=== PATIENT | female | born 1955 | race Caucasian/White ===

== ENCOUNTER → 2017-08-29 | Outpatient (CLI) | payer OTHER | LOC: FIMAGING 11:34 | PROVIDERS: ATTEND Family Medicine | DX: Z12.31 Encounter for screening mammogram for malignant neoplasm of breast (principal) | CPT/HCPCS: G0202 ==

== ENCOUNTER → 2018-06-21 | Outpatient (CLI) | payer OTHER | LOC: FIMAGING 15:19 | PROVIDERS: ATTEND Orthopaedic Surgery | DX: M16.12 Unilateral primary osteoarthritis, left hip (principal); S76.312A Strain of muscle, fascia and tendon of the posterior muscle group at thigh level, left thigh, initial encounter; M79.89 Other specified soft tissue disorders ==

== ENCOUNTER 2018-07-02 12:15 | Inpatient (IN) | payer OTHER ==
[2018-07-24] MEDS ORDERED: POVIDONE-IODINE 20 ML in SODIUM CL IRRIG SOLUTION 500 ML IRR ONE (06:00)
[2018-07-24] MEDS ORDERED: TRANEXAMIC ACID 1,000 MG in NS 100 ML IV ONE (06:00)
[2018-07-24] MEDS ORDERED: VANCOMYCIN HCL/NORMAL SALINE 250 ML IV ONE ×2 (06:00→19:00)
[2018-07-24] MEDS ORDERED: ROPIVACAINE 0.2% 80 MG, EPINEPHrine 0.2 MG, KETOROLAC TROMETHAMINE 30 MG in SYRINGE 0 ML IU ONE (06:00)
[2018-07-24] MEDS ORDERED: VANCOMYCIN PHARMACY TO DOSE MISC ONE (06:00)
[2018-07-24] MEDS ORDERED: ACETAMINOPHEN 325 MG TAB PO ONE (06:17)
[2018-07-24] MEDS ORDERED: DEXAMETHASONE 4 MG/ML VIAL IVP ONE (06:17)
[2018-07-24] MEDS ORDERED: FAMOTIDINE 20 MG TAB PO ONE (06:17)
[2018-07-24] MEDS ORDERED: LIDOCAINE 1% 2 ML INJ ID PRN (06:19)
[2018-07-24] MEDS ORDERED: LR 1,000 ML IV ONE (06:19)
[2018-07-24] MEDS ORDERED: BUPIVACAINE/EPI 0.5% 30 ML SDV ONE (06:41)
[2018-07-24] MEDS ORDERED: MIDAZOLAM 2 MG/2 ML VIAL IVP ONE (07:02)
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
--- NOTE | 2018-07-24 07:05 | PDHPUP ---
History & Physical Update H&P update statement: This history and physical update is based on an assessment of the patient which was completed after admission or registration (within 24 hours), but prior to the surgery/procedure. H&P update: H&P reviewed & patient examined, no change in patient's condition since H&P completed
[2018-07-24] MEDS ORDERED: PROPOFOL/EMULSION 500 MG/50 ML BOTTLE IV ONE (07:09)
[2018-07-24] MEDS ORDERED: BUPIVACAINE/DEXTROSE 7.5MG/ML 2 ML SPINAL AMP SP ONE (07:10)
[2018-07-24] MEDS ORDERED: LIDOCAINE 2% 2 ML INJ ONE (07:14)
--- NOTE | 2018-07-24 07:47 | POSTANESTH ---
Post Anesthetic Evaluation Cardiovascular Status: Normal, Stable Respiratory Status: Normal, Stable Level of Consciousness/Mental Status: Can Participate in Eval, Alert and Oriented Pain Control: Adequate, Prn Tx Ordered Nausea/Vomiting Control: Adequate, Prn Tx Ordered Complications Possibly Related to Anesthesia: None Noted
[2018-07-24] MEDS ORDERED: fentaNYL 100 MCG/2 ML INJ ONE ×2 (08:00→10:16)
[2018-07-24] MEDS ORDERED: hydrALAZINE 20 MG/ML VIAL ONE (08:06)
[2018-07-24] MEDS ORDERED: PROPOFOL 200 MG/20 ML VIAL ONE ×2 (08:31)
[2018-07-24] MEDS ORDERED: HYDROmorphONE/DILAUDID 2 MG/ML INJ IVP PRN (09:42)
[2018-07-24] MEDS ORDERED: HYDROCODONE/APAP 5/325 TAB PO PRN (09:42)
[2018-07-24] MEDS ORDERED: LABETALOL HCL 5 MG/ML 20 ML MDV IVP PRN (09:42)
[2018-07-24] MEDS ORDERED: METOCLOPRAMIDE 10 MG/2 ML VIAL IVP PRN ×2 (09:42→09:46)
[2018-07-24] MEDS ORDERED: ACETAMINOPHEN 500 MG TAB PO PRN (09:42)
[2018-07-24] MEDS ORDERED: ONDANSETRON 4 MG/2 ML VIAL IVP PRN ×2 (09:42→09:46)
[2018-07-24] MEDS ORDERED: NALOXONE HCL 0.4 MG/ML INJ IVP PRN (09:42)
[2018-07-24] MEDS ORDERED: LR 500 ML IV PRN (09:42)
[2018-07-24] MEDS ORDERED: DIAZEPAM 5 MG/ML 1 ML SYR IVP PRN (09:42)
[2018-07-24] MEDS ORDERED: oxyCODONE IR 5 MG TAB PO PRN ×2 (09:42→09:46)
[2018-07-24] MEDS ORDERED: PROMETHAZINE HCL 25 MG/ML INJ IVP PRN ×2 (09:42→09:46)
[2018-07-24] MEDS ORDERED: ALBUTEROL 3 ML DEYVIAL IH PRN (09:42)
[2018-07-24] MEDS ORDERED: BISACODYL 10 MG SUPP PR PRN (09:46)
[2018-07-24] MEDS ORDERED: PROMETHAZINE HCL 25 MG SUPPR PR PRN (09:46)
[2018-07-24] MEDS ORDERED: LACTULOSE 20 GM/30 ML UDCUP PO PRN (09:46)
[2018-07-24] MEDS ORDERED: MAGNESIUM HYDROXIDE 30 ML UDCUP PO PRN (09:46)
[2018-07-24] MEDS ORDERED: TEMAZEPAM 15 MG CAP PO PRN (09:46)
[2018-07-24] MEDS ORDERED: diphenhydrAMINE 25 MG CAP PO PRN (09:46)
[2018-07-24] MEDS ORDERED: POLYETHYLENE GLYCOL 3350 17 GM PKT PO PRN (09:46)
[2018-07-24] MEDS ORDERED: CYCLOBENZAPRINE 10 MG TAB PO PRN (09:46)
[2018-07-24] MEDS ORDERED: ONDANSETRON DISINTEGRATING 4 MG TAB PO PRN (09:46)
[2018-07-24] MEDS ORDERED: DIPHENOXYLATE/ATROPINE LOMOTIL 1 TAB PO PRN (09:46)
--- NOTE | 2018-07-24 09:55 | POSTOPPROG ---
Post Op Note Date of Operation: 07/24/18 Surgeon: Tyrese Mcclure Card Folder: SURINDER Velazquez Anesthesiologist: MD Jamaal Anesthesia: IV Sedation, Spinal Pre-op Diagnosis: Left hip OA Post-op Diagnosis: same Procedure: L ant ABDULLAHI with ELINA Inf/Abcess present in the surg proc area at time of surgery?: No EBL: 100-500 (250) Drains: Hemovac
[2018-07-24] MEDS ORDERED: LR 1,000 ML IV SCH (10:00)
[2018-07-24] MEDS: fentaNYL 100 MCG/2 ML INJ IVP PRN ×2 (10:18→10:34)
--- NOTE | 2018-07-24 10:42 | GOP ---
DATE OF OPERATION: 07/24/2018 SURGEON: Tyrese Mcclure MD CONSTRUCTION ESTIMATOR: Hector Velazquez, CSFA, LSA. Chick Grader was required for the procedure due to complexity of case and the patient's condition for positioning, prepping, draping, retraction and closure. ANESTHESIA: Spinal and IV sedation. PREOPERATIVE DIAGNOSIS: Left hip osteoarthritis. POSTOPERATIVE DIAGNOSIS: Left hip osteoarthritis. PROCEDURE PERFORMED: Left anterior approach total hip arthroplasty with MAKOplasty robotic guidance, fluoroscopic supervision greater than 1 hour. FINDINGS: SPECIMENS: None. ESTIMATED BLOOD LOSS: 250 cc. INDICATIONS: The patient has severe hip osteoarthritis that failed to improve with conservative edwin ures significantly affecting activities of daily living including walking. The patient elected to pr oceed with anterior total hip arthroplasty using MAKOplasty robotic guidance after extensive discussi on of all possible approaches as well as risks, benefits, pros, cons, expected recovery, and prognosi s. The patient verbalized an understanding of the risks and benefits of the procedure and signed the informed consent prior to the procedure. DESCRIPTION OF PROCEDURE: The patient was seen in the holding area, and the operative consent and ex tremity were signed. The patient was then taken the operating room. After smooth induction of spina l anesthesia and sedation, the patient was placed in a supine position on the Steris fracture table. The hip and contralateral iliac crest were prepped and draped in usual sterile fashion. The operati ve site was confirmed by signature. Operative time-out performed. Allergies were reviewed. Antibio tics and TXA were administered. Three pins were placed in the contralateral iliac crest and the pelvic array was fixed. It was visua lized by the robot and desired incision for the anterior approach on the hip was infiltrated with 0.2 5% Marcaine with epinephrine. Incision was made with a 10 blade and carried through the subcutaneous tissue to identify the TFL fascia. This was incised in line with the incision and the TFL was retra cted laterally. The lateral femoral circumflex vessels were coagulated with the Aquamantys. The TFL fascia was incised, and vastus lateralis was clearly exposed. Precapsular fat was excised, and a T- shaped capsulotomy was performed, and the capsule was preserved for later closure. Femoral checkpoint was fixed in the anterior greater trochanter. Express registration was completed, and the femoral neck cut was then performed based on pretemplated calculations and imaging. The fem oral head was excised with a corkscrew. The acetabulum was closed in standard fashion. The labrum and pulvinar tissue were excised sharply, and the pelvic checkpoint was placed in the AIIS. Acetabular registration was performed using the ro bot. Reaming was then performed using the robot to the desired size. Cup was impacted into place ag ain with robotic guidance. Good fixation was achieved. The cup was irrigated dry, and the liner was impacted into place achieving good locking within the cup. Anterior acetabular osteophyte was remov ed with an osteotome. The femur was then exposed in standard fashion. The femur was broached to the desired size. Trial n adriano and head were attached, and the hip was relocated. Length and offset were confirmed using the ro bot. Position of all components was also confirmed at this point fluoroscopically. The hip was disl ocated, and the femoral trial components were removed, and the stem was impacted into place. The edi nnion was cleaned and dried, and the head was impacted onto the trunnion. The wound was copiously ir rigated including the cup with pulse lavage, and the hip was once again relocated and final numbers f or length and offset were taken using the robot. Component placement was confirmed with fluoroscopy. All checkpoints and femoral array screw were removed. The pelvic array was also removed. The woun d was copiously irrigated with sterile solution. Dilute Betadine solution was then irrigated into th e wound and allowed to soak for 30 minutes before being irrigated out. Joint cocktail was injected i n the soft tissue, and the capsule repaired with #1 Vicryl as well as the indirect head of the rectus femoris. Drain was placed exiting distally and laterally from deep to TFL. The wound was then clos ed in layers with 0 Quill in the TFL fascia, deep subcutaneous fat, and 3-0 Versalok in the dermis. The wound was then dressed with sterile dressings. Patient was safely awakened and taken to recovery room in stable condition. All critical portions of the procedure were performed by myself, Dr. Mcclure. The operative note was cr eated by myself and I was immediately available for emergency cross-coverage at all times. DRAINS: Hemovac x1. COMPLICATIONS: None. IMPLANTS: Include a Trident II Tritanium acetabular shell size 52 mm; +36 mm polyethylene liner, 0 d egree; Accolate II size 5 stem, 127 degree offset; 36 mm, -2.5 head. /[id number]/MODL
--- NOTE | 2018-07-24 12:06 | PDMN ---
Medical Necessity Medical necessity: Pt meets inpt criteria per MD order and [facility] S-560, Hip Arthroplasty, [facility] inpt only surgery. 63 y/o L anterior ABDULLAHI w/ELINA.
[2018-07-24] MEDS: ACETAMINOPHEN 325 MG TAB PO SCH ×3 (14:29→23:36)
[2018-07-24] MEDS ORDERED: VANCOMYCIN 1 GM in NS 250 ML IV SCH (19:00)
[2018-07-24] MEDS: CALCIUM CARBONATE 500 MG TAB PO SCH (20:40)
[2018-07-24] MEDS: ASPIRIN 81 MG CHEWABLE TAB PO SCH (20:40)
[2018-07-24] MEDS: FAMOTIDINE 20 MG TAB PO SCH (20:40)
[2018-07-24] MEDS: SENNOSIDES/DOCUSATE SODIUM TAB PO SCH (20:40)
[2018-07-25] MEDS ORDERED: LEVOTHYROXINE 50 MCG TAB PO SCH (06:00)
[2018-07-25] MEDS: ACETAMINOPHEN 325 MG TAB PO SCH ×3 (06:10→15:22)
--- NOTE | 2018-07-25 08:33 | SOAPPROG ---
SOAP Progress Note Assessment/Plan: Assessment: Postop day 1 status post left anterior approach total hip arthroplasty with Paramjit Plan: Weight bear as tolerated with assistance and PT OT Incentive spirometry 10 times per hour DVT prophylaxis: SCDs Gage hose and aspirin 81 mg twice daily Disposition: Home today after a.m. PT 07/25/18 08:32 Subjective: No acute events overnight. Pain well controlled. Denies fevers chills nausea vomiting chest pain shortness of breath. Ambulated throughout the room into the restroom yesterday Objective: Vital Signs Temp Pulse Resp BP Pulse Ox 37.0 C 71 16 123/72 H 94 07/25/18 08:00 07/25/18 08:00 07/25/18 08:00 07/25/18 08:00 07/25/18 08:00 Laboratory Results 07/25/18 04:28 07/24/18 07/25/18 07/26/18 05:59 05:59 05:59 Intake Total 900 Output Total 3510 Balance -2610 Awake alert and oriented x3 Easy nonlabored breathing Left hip: Dressing clean dry intact no erythema drainage or signs of infection Drain discontinued No significant swelling or ecchymosis Thigh and calf compartments soft compressible Sensation intact to light touch L4-S1 Motor intact to EHL FHL tibialis anterior gastrocsoleus Palpable DP PT pulses - Time Spent With Patient Time Spent With Patient: 15 - Pending Discharge Pending Discharge Within 24 Hours: Yes Pending Discharge Date: 07/25/18 Pending Discharge Time: 11:00 ICD10 Worksheet Patient Problems: Problems Problem Status Onset Osteoarthritis of hip Acute
[2018-07-25] MEDS ORDERED: CHOLECALCIFEROL VIT D3 1,000 UNITS TAB PO SCH (09:00)
[2018-07-25] MEDS ORDERED: MULTIVITAMINS 1 EACH TAB PO SCH (09:00)
[2018-07-25] MEDS: FAMOTIDINE 20 MG TAB PO SCH (09:30)
[2018-07-25] MEDS: CALCIUM CARBONATE 500 MG TAB PO SCH (09:32)
[2018-07-25] MEDS: ASPIRIN 81 MG CHEWABLE TAB PO SCH (09:32)
[2018-07-25] MEDS: SENNOSIDES/DOCUSATE SODIUM TAB PO SCH (09:33)
--- NOTE | 2018-07-25 11:55 | PDIAF ---
- Diagnosis Code Status: Full Code - Medication Management Discharge Medications: Medications to Continue on Transfer Calcium Carbonate [Oyster Shell Calcium 500 mg (*)] 500 mg PO BID 06/23/15 [ Last Taken 07/17/18] Cholecalciferol Vit D3 [Vitamin D3 (*)] 1,000 units PO DAILY 06/23/15 [Last Taken 07/17/18] Multivitamins [Multivitamin (*)] 1 each PO DAILY 06/23/15 [Last Taken 07/17/18] Levothyroxine [Synthroid 50 mcg (*)] 50 mcg PO DAILY06 06/06/18 [Last Taken ] Aspirin [Aspirin 81mg (*)] 81 mg PO BID tab.chew 07/25/18 [Last Taken Unknown] celeCOXIB [Celebrex (*)] 200 mg PO DAILY #21 cap 07/25/18 [Last Taken Unknown] Discharge Medications: Refer to the Discharge Home Medication list for PRN reason. - Orders Services needed: Home Penitentiary Care Face to Face: I certify that this patient was under my care and that I had the required [id number] encounter meeting the encounter requirements on the discharge day. My findings support the fact that the patient is homebound as defined in Home Care Face to Face Continued: CMS Chapter 7 Medicare Benefits Manual 30.1.1 , The condition of the patient is such that there exists a normal inability to leave home and consequently, leaving home would require a considerable and taxing effort. Isolation Type: None Diet Recommendation: no restrictions on diet Diet Texture: Regular Texture Diet Wound Care Instructions: see handout Activity/Weight Bearing Restrictions: WBAT Equipment: Walker Additional Instructions: WBAT see handout [facility] [phone] - Follow Up Care Current Providers and Referrals: Billie Hernandez MD [Primary Care Provider] -
[2018-07-25 12:00] VITALS: BP 93/60
--- NOTE | 2018-07-25 14:10 | ASMTCMCOM ---
CM Note CM Note Notes: Pt s/p OA of hip. Pt medically stable for d/c. PT rec home, pt wants C and requests BC. Orders to be obtained via [employer]. Pt resides with spouse. Date Signed: 07/25/2018 02:09 PM Electronically Signed By:ANA Page
--- NOTE | 2018-07-25 14:10 | ASDISCHSUM ---
Discharge Information Plan Status:Home with Home Health Medically Cleared to Leave: Discharge Date:07/25/2018 01:37 PM CM D/C Disposition:Home Health Service ADT D/C Disposition:[id number] Projected Discharge Date:07/25/2018 11:00 AM Transportation at D/C: Discharge Delay Reason: Follow-Up Date:07/25/2018 11:00 AM Discharge Slot: Final Diagnosis: Placement Information Referral Type:*Home Health Care Services Referral ID:[id number] Provider Name:[facility] Address 1:[address] Address 2: City:[place] Selection Factors: State:[place] Patient Contact Information Contact Name:SHERRY Relationship: Address:[address] City:[place] Alternate Phone: State/Zip Code:[place] [address] Email: Financial Information [facility] Desc:[facility] Primary Plan Number:[id number] Secondary Plan Desc: Secondary Plan Number: Assessment Information LACE LACE Length of stay for Answers: 2 days current admission Acuity / Level of Answers: Yes Care: Did the patient have an inpatient admission? Comorbidities - select Answers: Opioid dependence all that apply / Chronic pain Other Notes: Hypothyroid; HTN # of Emergency department Answers: 0 visits in the last 6 months Social determinants Answers: Mental health diagnosis (anxiety, depression, pers onality disorders, etc.) Score: 13 Date Signed: 07/25/2018 02:08 PM Electronically Signed By:ANA Page [facility] Progress Note CM Note CM Note Notes: Pt s/p OA of hip. Pt medically stable for d/c. PT rec home, pt wants C and requests BC. Orders to be obtained via [employer]. Pt resides with spouse. Date Signed: 07/25/2018 02:09 PM Electronically Signed By:ANA Page Intervention Information
== END 2018-07-25 13:37 | disposition home health service (06) | DRG 470 ==
LOC: F3N 07-24 05:53
PROVIDERS: ADMIT Orthopaedic Surgery; ATTEND Orthopaedic Surgery
PROC: 0SRB04Z Replacement of Left Hip Joint with Ceramic on Polyethylene Synthetic Substitute, Open Approach (ICD-10-PCS; principal; 2018-07-24 07:15)
PROC: 8E0Y0CZ Robotic Assisted Procedure of Lower Extremity, Open Approach (ICD-10-PCS; principal; 2018-07-24 07:15)
DX: M16.12 Unilateral primary osteoarthritis, left hip (principal); E03.9 Hypothyroidism, unspecified
CPT/HCPCS: 97116-GP; 97161-GP; 97165-GO; G8979-GP-CI; G8980-GP-CI; J0171; J0360; J1100; J1885; J2250; J2704; J2795; J3010; J3370

== ENCOUNTER → 2018-07-09 | Outpatient (CLI) | payer OTHER | LOC: FIMAGING 08:50 | PROVIDERS: ATTEND Orthopaedic Surgery | DX: M16.12 Unilateral primary osteoarthritis, left hip (principal); M17.0 Bilateral primary osteoarthritis of knee; Z90.710 Acquired absence of both cervix and uterus ==

== ENCOUNTER → 2018-10-24 | Outpatient (CLI) | payer OTHER | LOC: FIMAGING 10:08 | PROVIDERS: ATTEND Family Medicine | DX: Z12.31 Encounter for screening mammogram for malignant neoplasm of breast (principal) ==

== ENCOUNTER → 2018-12-01 | Outpatient (CLI) | payer OTHER | LOC: BMCIMAGING 15:13 | PROVIDERS: ATTEND Family Medicine | DX: M85.89 Other specified disorders of bone density and structure, multiple sites (principal); E07.9 Disorder of thyroid, unspecified; Z78.0 Asymptomatic menopausal state; Z96.643 Presence of artificial hip joint, bilateral; Z82.69 Family history of other diseases of the musculoskeletal system and connective tissue ==